=== PATIENT | female | born 1930 | race Caucasian/White ===

== ENCOUNTER 2016-05-22 08:42 | Emergency (ER) | payer MEDICARE, MEDICAID ==
--- NOTE | 2016-05-22 09:45 | ED ---
Head Injury - HPI Summary HPI Summary: 85F presents with fall out of bed this morning. She denies any chest pain or SOB. She does not recall the fall well. According to the [facility] records this is her third this week. The previous fall is when she sustain an injury to her left eye. She states that nothing is bother her at the moment. When press on areas she notes pain to her right foot and hip and right shoulder. According to the nurse home records she was found on her right side. She has dementia and states she does not remember the exact circumstances of the fall but states that she thinks she rolled out of bed According to her records she is not on any blood thinners. She has blood noted to the right side of her scalp. Patient gets around by wheelchair in [facility]. - History Of Current Complaint Chief Complaint: EDGeneral Stated Complaint: FALL Time Seen by Provider: 05/22/16 09:26 Pain Intensity: 8 - Allergies/Home Medications Allergies/Adverse Reactions: Allergies Allergy/AdvReac Type Severity Reaction Status Date / Time Penicillins [PCN] Allergy Unknown Unknown Verified 07/06/13 16:50 Reaction Details Levofloxacin [From Levaquin] Allergy Unknown Verified 01/31/16 05:46 Reaction Details Prochlorperazine Allergy Unknown Verified 01/31/16 05:46 [From Compazine] Reaction Details Promethazine [From Phenergan] Allergy DISORIENTAT Verified 07/06/13 16:50 ION PMH/Surg Hx/FS Hx/Imm Hx Endocrine/Hematology History: Reports: Hx Anemia - IRON DEFICIENCY Denies: Hx Anticoagulant Therapy Cardiovascular History: Reports: Hx Coronary Artery Disease - STENT IN PLACE- APPROXIMATELY 13 YEARS AGO, Hx Hypertension - ON MEDICATION Respiratory History: Reports: Hx Pneumonia - current DX Comment Only: Hx Asthma - PNEUMONIA GI History: Reports: Hx Gastroesophageal Reflux Disease - ON MEDICATION, Other GI Disorders - HISTORY OF GASTRITIS Musculoskeletal History: Reports: Hx Arthritis - BACK, NECK HANDS, Hx Back Problems - altman surgery x4, Other Musculoskeletal History - BILATERAL FOOT DROP PER DR. ROSE H&P Sensory History: Reports: Hx Contacts or Glasses - GLASSES Denies: Hx Hearing Aid Opthamlomology History: Reports: Hx Contacts or Glasses - GLASSES Psychiatric History: Reports: Hx Depression - ON MEDICATION FOR - Surgical History Surgery Procedure, Year, and Place: APPENDECTOMY-TC. 3- [id number]. NECK SURGERY- DISCECTOMY. FUSION-WITH REVISIONS [facility]. FOOT SURGERY. CARDIAC STENT. SURGERY FOR DIVERTICULITIS Hx Anesthesia Reactions: Yes - ONE OF C-SECTIONS- 1954- LUNGS FILLED WITH FLUID - Immunization History Date of Tetanus Vaccine: unk Date of Influenza Vaccine: 01/09/16 Infectious Disease History: No Infectious Disease History: Reports: Hx Hepatitis - A CHILD Denies: Traveled Outside the [place] in Last 30 Days - Family History Known Family History: Positive: Hypertension - Social History Alcohol Use: None Substance Use Type: Reports: None Smoking Status (MU): Never Smoked Tobacco Type: Cigarettes Amount Used/How Often: 1/2 pk/day Review of Systems Negative: Fever Negative: Chest Pain Negative: Shortness Of Breath Negative: Abdominal Pain Positive: Myalgia - right hip and foot Positive: Other - laceration to right side of scalp Negative: Headache All Other Systems Reviewed And Are Negative: Yes Physical Exam Triage Information Reviewed: Yes Vital Signs On Initial Exam: Initial Vitals BP 120/51 05/22/16 08:46 Vital Signs Reviewed: Yes Completion Of Physical Exam Limited Due To: Dementia Appearance: Positive: Well-Appearing Skin: Positive: Warm, Dry, Other - no suturable area noted on right side of scalp, small abrasion 2cm noted that does not separate Head/Face: Positive: Other - left raccoon eye present, no step off noted, no patricio sign Eyes: Positive: Normal, EOMI, JAMESON, Conjunctiva Clear ENT: Positive: Normal ENT inspection, Pharynx normal, TMs normal Neck: Positive: Nontender Respiratory/Lung Sounds: Positive: Clear to Auscultation, Breath Sounds Present Cardiovascular: Positive: Normal, RRR Abdomen Description: Positive: Nontender, Soft Bowel Sounds: Positive: Present Musculoskeletal: Positive: Other - tender to right foot, shoulder, and hip with ecchymosis noted on right shoulder and hip Neurological: Positive: CN Intact II-III - [place] Coma Scale Best Eye Response: 4 - Spontaneous Best Motor Response: 6 - Obeys Commands Best Verbal Response: 5 - Oriented Coma Scale Total: 15 Diagnostics - Vital Signs Vital Signs Temp Pulse Resp BP Pulse Ox 05/22/16 09:03 96.6 F 68 18 120/51 100 05/22/16 09:00 64 99 05/22/16 08:54 96.6 F 68 18 120/51 100 05/22/16 08:48 69 93 05/22/16 08:46 120/51 - Laboratory Lab Statement: Any lab studies that have been ordered have been reviewed, and results considered in the medical decision making process. - Radiology shoulder Xray Interpretation: No Acute Changes - IMPRESSION: Old ununited fracture of the right clavicle. Superiorly subluxed humeral head likely due to chronic rotator cuff tear. Radiology Interpretation Completed By: Radiologist hip Xray Interpretation: No Acute Changes - IMPRESSION: No fracture of the pelvis is noted. Degenerative changes of the right hip are noted. The right hip is limited in evaluation due to body habitus. Radiology Interpretation Completed By: Radiologist foot Xray Interpretation: No Acute Changes - IMPRESSION: LIMITED VIEWS SHOW NO DEFINITIVE FRACTURE. SUGGEST FOLLOW-UP INDICATED Radiology Interpretation Completed By: Radiologist - CT head CT Interpretation: Positive (See Comments) - IMPRESSION: No intracranial mass or hemorrhage is noted. Soft tissue swelling over the left orbit with skin thickening at the medial aspect of the orbit just adjacent to the nasal bridge. There may be some underlying bony destruction present. Right parietal scalp hematomas are noted. CT Interpretation Completed By: Radiologist maxillary CT Interpretation: Positive (See Comments) - IMPRESSION: 1. NO FACIAL FRACTURE. 2. FOCAL SOFT TISSUE THICKENING ALONG THE MEDIAL CANTHUS OF THE LEFT EYE. RECOMMEND CORRELATION WITH DIRECT VISUALIZATION. 3. SINUS MUCOSAL INFLAMMATORY DISEASE. CT Interpretation Completed By: Radiologist Head Injury Course/Dx Course Of Treatment: 85F presents with fall out of bed. has dementia so does not remember fall. denies any chest pain or SOB currently. She has raccoon eye that was from a previous fall this week. She feel on her right side today. She has blood present on right side of scalp. She admits to right foot, hip, and shoulder pain. xray normal. foot was limited xray. CT brain showed hematoma and possible lesion of left eye near medial canthus on exam there is a bum present there. discussed head CT with dr morrell and dr nevarez and lesion does not appear to osteomyelitis could be potential lytic lesion so will need follow up to see if resolves or not. urine was cloudy and positive for UTI. will treat with bactrim due to allergies. cleaned scalp and no suturable lesion present. instructed patient to follow up with primary about lesion near eye and for repeat xray of foot as needed. gave instructions for patient [facility] to [facility]. - Diagnoses Differential Diagnosis/HQI/PQRI: Contusion, Intracranial Bleed, Orbital Fracture , Other - UTI Provider Diagnoses: Urinary tract infection, lesion of medial canthus of left eye, Head injury, Right hip pain, Right shoulder pain, Right foot pain Discharge - Discharge Plan Condition: Stable Disposition: CUSTODIAL FACILITY Prescriptions: Sulfamethox/Trimethoprim DS* [Bactrim DS 800/160 TAB*] 1 tab PO BID #13 tab Patient Education Materials: Urinary Tract Infection in Women (ED), Scalp Contusion in Adults (ED) Referrals: Jesus Dasilva MD [Primary Care Provider] - Additional Instructions: Patient has a UTI: give first dose of bactrim in ED, will need to take Bactrim DS bid for 7 days Patient potentially has lesion of medial canthus of left eye may be due to fall or may represent potential lytic lesion, will need follow up with primary to follow this potential lesion Foot xray were limited due to patient so may need follow up in future for xray to ensure nothing is fractured Can take tyenol for pain every 6 hours as needed Return to ED if develop any new or worsening symptoms
[2016-05-22 10:13] LABS: Urine Bacteria Absent (Absent); Urine Bilirubin Negative (Negative); Urine Glucose Negative (Negative); Urine Nitrite Negative (Negative)
[2016-05-22] MEDS ORDERED: Sulfamethox/Trimethoprim DS 800/160* TAB PO ONE (10:31)
--- NOTE | 2016-05-22 10:53 | RAD ---
HISTORY: Left facial trauma COMPARISONS: None TECHNIQUE: Multiple contiguous axial CT scans were obtained of the face without intravenous contrast, with coronal and sagittal multiplanar reformations. FINDINGS: BONES: There is no displaced fracture or dislocation. The orbital rim is intact. The zygomatic arch is intact. The pterygoid plates are intact. Degenerative changes are noted of the spine. 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 The optic nerves are symmetric. The extraocular musculature is normal. There is no post septal or intraconal inflammatory change. There is no retrobulbar hematoma. There is focal soft tissue thickening along the medial canthus of the left eye PARANASAL SINUSES: The nasal septum is deviated to the left. There is polypoid mucosal thickening versus mucus retention cyst of the left maxillary sinus. BRAIN AND SOFT TISSUE: There is soft tissue swelling along the left frontal scalp OTHER: None. IMPRESSION: 1. NO FACIAL FRACTURE. 2. FOCAL SOFT TISSUE THICKENING ALONG THE MEDIAL CANTHUS OF THE LEFT EYE. RECOMMEND CORRELATION WITH DIRECT VISUALIZATION. 3. SINUS MUCOSAL INFLAMMATORY DISEASE.
--- NOTE | 2016-05-22 10:54 | RAD ---
Indication: Fall, head injury. CT of the brain was performed without IV contrast. Ventricular structures are midline. No midline shift is noted. The extra-axial spaces are unremarkable. There is no evidence of intracranial mass or hemorrhage. Mastoid air cells and paranasal sinuses are unremarkable. There is a right parietal scalp hematoma present. There is also a right parietal scalp hematoma noted. In the right medial orbit there appears to be a skin lesion which may be causing bony destruction. IMPRESSION: No intracranial mass or hemorrhage is noted. Soft tissue swelling over the left orbit with skin thickening at the medial aspect of the orbit just adjacent to the nasal bridge. There may be some underlying bony destruction present. Right parietal scalp hematomas are noted.
--- NOTE | 2016-05-22 11:17 | RAD ---
Indication: Right shoulder pain. 3 views of the right shoulder demonstrates superiorly subluxed humeral head likely due to chronic rotator cuff tear. There appears to be old fracture of the clavicle. No recent fracture is noted. IMPRESSION: Old ununited fracture of the right clavicle. Superiorly subluxed humeral head likely due to chronic rotator cuff tear.
--- NOTE | 2016-05-22 11:19 | RAD ---
Indication: Right hip pain. 2 views of the right hip are reviewed. AP view the pelvis is reviewed. The lateral view is extremely limited due to body habitus. Degenerative changes of the right hip are noted. Pelvic ring is intact. IMPRESSION: No fracture of the pelvis is noted. Degenerative changes of the right hip are noted. The right hip is limited in evaluation due to body habitus.
--- NOTE | 2016-05-22 11:20 | RAD ---
INDICATION: Fall. Foot pain COMPARISON: None TECHNIQUE: Portable lateral and crosstable AP images were obtained. FINDINGS: This is a limited examination due to positioning. There is marked osteopenia. There is no definitive fracture but the toes are not well evaluated. There is moderate osteophyte change but the midfoot. There is a plantar calcaneal spur. IMPRESSION: LIMITED VIEWS SHOW NO DEFINITIVE FRACTURE. SUGGEST FOLLOW-UP INDICATED
[2016-05-22 12:30] VITALS: BP 107/45
--- NOTE | 2016-05-24 11:04 | PN ---
Progress Note - Progress Note Note: Proteus mirabilis grew from urine culture. gram negative bacteria likely susceptible to bactrim. Will await sensitivities.
== END 2016-05-22 12:30 ==
LOC: ED 08:42
DX: N39.0 Urinary tract infection, site not specified (principal); M25.511 Pain in right shoulder; S09.90XA Unspecified injury of head, initial encounter; S01.01XA Laceration without foreign body of scalp, initial encounter; R07.9 Chest pain, unspecified; R06.02 Shortness of breath; W06.XXXA Fall from bed, initial encounter; Y93.9 Activity, unspecified; Y92.9 Unspecified place or not applicable; Z88.0 Allergy status to penicillin
CPT/HCPCS: 70450; 70486; 81003; 81015; 87077; 87086; 87186; 99283; A9270-GY

== ENCOUNTER 2016-09-22 13:31 | Emergency (ER) | payer MEDICARE, MEDICAID ==
[2016-09-22] MEDS ORDERED: NS 0.9% 1000 ML* 1,000 ML IV ONE (14:51)
[2016-09-22] MEDS ORDERED: Ondansetron INJ* 2 MG/ML VIAL IV ONE (14:52)
[2016-09-22] MEDS ORDERED: HYDROcodone/ACETAMIN 5-325 MG* 1 TAB PO ONE ×2 (14:52→18:46)
[2016-09-22 15:23] LABS: Hematocrit 39 % (35-47); Hemoglobin 12.5 g/dl (12.0-16.0); Mean Corpuscular HGB Conc 33 g/dl (31-36); Mean Corpuscular Hemoglobin 29 pg (27-31); Mean Corpuscular Volume 90 fL (80-97); Mean Platelet Volume 8 um3 (7.4-10.4); Red Cell Distribution Width 16 % (10.5-15); White Blood Count 15.4 10^3/ul (3.5-10.8)
[2016-09-22 15:24] LABS: Add Diff/Slide Review? Slide Review Added; Comments Flag Yes
[2016-09-22 15:40] LABS: Albumin 4.1 g/dL (3.2-5.2); BUN/Creatinine Ratio 18.5 (8-20); C Reactive Protein 3.21 mg/L (< 5.00); Calcium 9.7 mg/dL (8.6-10.3); EGFR African American 74.4 (>60); EGFR Non-African American 57.9 (>60); Magnesium 2.2 mg/dL (1.9-2.7); Total Bilirubin 0.5 mg/dL (0.2-1.0); Total Protein 8.1 g/dL (6.4-8.9)
[2016-09-22 17:06] LABS: Urine Bilirubin Negative (Negative); Urine Glucose Negative (Negative); Urine Nitrite Negative (Negative)
--- NOTE | 2016-09-22 18:57 | ED ---
Sailaja Roy Auryana, scribed for Marcos Lugo MD on 09/22/16 at 1456 . Abdominal Pain/Female - HPI Summary HPI Summary: 86 year old female presents with nausea and vomiting starting this morning. Patient reports that she has decreased appetite, diffuse myalgia, back pain, and SOB but denies any abdominal pain, diarrhea, and constipation. PMHx is significant for perforated diverticulitis. - History of Current Complaint Chief Complaint: EDAbdPain Stated Complaint: N,V, FEVER Time Seen by Provider: 09/22/16 14:47 Hx Obtained From: Patient Hx Last Menstrual Period: N/A ?: No Onset/Duration: Gradual Onset Timing: Constant Severity Initially: Moderate Severity Currently: Moderate Pain Intensity: 7 Pain Scale Used: 0-10 Numeric Location: Diffuse - denies any abdominal pain now Associated Signs and Symptoms: Positive: Back Pain, Decreased Appetite, Nausea, Vomiting. Negative: Fever, Constipation Allergies/Adverse Reactions: Allergies Allergy/AdvReac Type Severity Reaction Status Date / Time Penicillins [PCN] Allergy Unknown Unknown Verified 09/22/16 14:00 Reaction Details Levofloxacin [From Levaquin] Allergy Unknown Verified 09/22/16 14:00 Reaction Details Prochlorperazine Allergy Unknown Verified 09/22/16 14:00 [From Compazine] Reaction Details Promethazine [From Phenergan] Allergy DISORIENTAT Verified 09/22/16 14:00 ION Home Medications: Home Medications ALPRAZolam TAB* [Xanax TAB*] 0.25 mg PO BID PRN MDD 0.50 mg 09/22/16 [History Confirmed 09/22/16] Acetaminophen SUPP* [Tylenol Supp*] 650 mg AL Q8HR PRN 09/22/16 [History Confirmed 09/22/16] Acetaminophen TAB* [Tylenol TAB*] 650 mg PO Q8HR PRN 09/22/16 [History Confirmed 09/22/16] Diaper Rash Products [A+D Diaper Rash] 1 cre TOPICAL DAILY 09/22/16 [History Confirmed 09/22/16] Mirtazapine TAB* [Remeron TAB*] 7.5 mg PO BEDTIME 09/22/16 [History Confirmed ] Morphine Sulfate Beads [Morphine Sulfate ER] 60 mg PO BID PRN 09/22/16 [History Confirmed 09/22/16] Nystatin TOP POWDER* 1 applic TOPICAL BID PRN 09/22/16 [History Confirmed ] Ranitidine HCl (Nf) [Zantac] 75 mg PO BID 09/22/16 [History Confirmed 09/22/16] guaiFENesin LIQ* [Robitussin*] 15 ml PO Q6HR PRN 09/22/16 [History Confirmed ] PMH/Surg Hx/FS Hx/Imm Hx Endocrine/Hematology History: Reports: Hx Anemia - IRON DEFICIENCY Denies: Hx Anticoagulant Therapy Cardiovascular History: Reports: Hx Coronary Artery Disease - STENT IN PLACE- APPROXIMATELY 13 YEARS AGO, Hx Hypertension - ON MEDICATION Respiratory History: Reports: Hx Pneumonia - current DX Comment Only: Hx Asthma - PNEUMONIA GI History: Reports: Hx Gastroesophageal Reflux Disease - ON MEDICATION, Other GI Disorders - HISTORY OF GASTRITIS Musculoskeletal History: Reports: Hx Arthritis - BACK, NECK HANDS, Hx Back Problems - altman surgery x4, Other Musculoskeletal History - BILATERAL FOOT DROP PER DR. ROSE H&P Sensory History: Reports: Hx Contacts or Glasses - GLASSES Denies: Hx Hearing Aid Opthamlomology History: Reports: Hx Contacts or Glasses - GLASSES Psychiatric History: Reports: Hx Depression - ON MEDICATION FOR - Surgical History Surgery Procedure, Year, and Place: APPENDECTOMY-TCH. 3- [id number]. NECK SURGERY- DISCECTOMY. [place] [facility] [place]. CARDIAC STENT. SURGERY FOR DIVERTICULITIS Hx Anesthesia Reactions: Yes - ONE OF C-SECTIONS- 1954- LUNGS FILLED WITH FLUID - Immunization History Date of Tetanus Vaccine: unk Date of Influenza Vaccine: 01/09/16 Infectious Disease History: No Infectious Disease History: Reports: Hx Hepatitis - A CHILD Denies: Traveled Outside the [place] in Last 30 Days - Family History Known Family History: Positive: Hypertension - Social History Alcohol Use: None Substance Use Type: Reports: None Smoking Status (MU): Never Smoked Tobacco Type: Cigarettes Amount Used/How Often: 1/2 pk/day Review of Systems Constitutional: Negative Negative: Fever Eyes: Negative ENT: Negative Cardiovascular: Negative Positive: Shortness Of Breath Positive: Vomiting, Nausea, Other - decreased appetite . Negative: Abdominal Pain Genitourinary: Negative Positive: no symptoms reported Positive: Myalgia - diffuse, Other - back pain Skin: Negative Neurological: Negative Psychological: Normal All Other Systems Reviewed And Are Negative: Yes Physical Exam - Summary Physical Exam Summary: VITAL SIGNS: Reviewed. GENERAL: Patient is a obese elderly female who is lying uncomfortable in the stretcher. Patient is in pain distress secondary to back pain. Patient is not in any acute respiratory distress. HEAD AND FACE: Normocephalic and atraumatic. EYES: PERRLA, EOMI x 2, No injected conjunctiva. EARS: Hearing grossly intact. Ear canals and tympanic membranes are WNL. MOUTH: Oropharynx within normal limits. NECK: Supple, trachea is midline, no adenopathy, no JVD. CHEST: Symmetric, no tenderness at palpation LUNGS: Clear to auscultation bilaterally. No wheezing or crackles. CVS: RRR, S1 and S2 present, no murmurs or gallops appreciated. ABDOMEN: Soft, non-tender. No signs of distention. Positive bowel sounds. No rebound no guarding, and no masses palpated. No abdominal bruit or pulsations. EXTREMITIES: FROM in all major joints, no edema, no cyanosis or clubbing. Vertebral angle tenderness in the lumbar spine. NEURO: Alert and oriented x 3. No acute neurological deficits. Speech is normal. SKIN: Dry and warm Triage Information Reviewed: Yes Vital Signs On Initial Exam: Initial Vitals Temp Pulse Resp BP Pulse Ox 98.4 F 61 18 150/81 96 09/22/16 13:54 09/22/16 13:54 09/22/16 13:54 09/22/16 13:54 09/22/16 13:54 Vital Signs Reviewed: Yes Diagnostics - Vital Signs Vital Signs Temp Pulse Resp BP Pulse Ox 09/22/16 13:58 98.4 F 61 18 167/79 98 09/22/16 13:54 98.4 F 61 18 150/81 96 - Laboratory Lab Results: Lab Results 09/22/16 09/22/16 09/22/16 Range/Units 15:10 15:10 15:10 WBC 15.4 H (3.5-10.8) 10^3/ul RBC 4.30 (4.0-5.4) 10^6/ul Hgb 12.5 (12.0-16.0) g/dl Hct 39 (35-47) % MCV 90 (80-97) fL MCH 29 (27-31) pg MCHC 33 (31-36) g/dl RDW 16 H (10.5-15) % Plt Count 229 (150-450) 10^3/ul MPV 8 (7.4-10.4) um3 Neut % (Auto) 80.0 (38-83) % Lymph % (Auto) 10.9 L (25-47) % Cassia % (Auto) 7.7 (1-9) % Eos % (Auto) 0.2 (0-6) % Baso % (Auto) 1.2 (0-2) % Absolute Neuts (auto) 12.3 H (1.5-7.7) 10^3/ul Absolute Lymphs (auto) 1.7 (1.0-4.8) 10^3/ul Absolute Monos (auto) 1.2 H (0-0.8) 10^3/ul Absolute Eos (auto) 0 (0-0.6) 10^3/ul Absolute Basos (auto) 0.2 (0-0.2) 10^3/ul Absolute Nucleated RBC 0.01 10^3/ul Nucleated RBC % 0 Sodium 133 (133-145) mmol/L Potassium 4.0 (3.5-5.0) mmol/L Chloride 97 L (101-111) mmol/L Carbon Dioxide 31 (22-32) mmol/L Anion Gap 5 (2-11) mmol/L BUN 17 (6-24) mg/dL Creatinine 0.92 (0.51-0.95) mg/dL Est GFR ( Amer) 74.4 (>60) Est GFR (Non-Af Amer) 57.9 (>60) BUN/Creatinine Ratio 18.5 (8-20) Glucose 104 H (70-100) mg/dL Lactic Acid 0.7 (0.5-2.0) mmol/L Calcium 9.7 (8.6-10.3) mg/dL Magnesium 2.2 (1.9-2.7) mg/dL Total Bilirubin 0.50 (0.2-1.0) mg/dL AST 21 (13-39) U/L ALT 10 (7-52) U/L Alkaline Phosphatase 74 (34-104) U/L C-Reactive Protein 3.21 (< 5.00) mg/L B-Natriuretic Peptide ( - 100) pg/mL Total Protein 8.1 (6.4-8.9) g/dL Albumin 4.1 (3.2-5.2) g/dL Globulin 4.0 (2-4) g/dL Albumin/Globulin Ratio 1.0 (1-3) Amylase 40 (29-103) U/L Lipase 46 (11.0-82.0) U/L Urine Color Urine Appearance Urine pH (5-9) Ur Specific [place] (1.010-1.030) Urine Protein (Negative) Urine Ketones (Negative) Urine Blood (Negative) Urine Nitrate (Negative) Urine Bilirubin (Negative) Urine Urobilinogen (Negative) Ur Leukocyte Esterase (Negative) Urine Glucose (Negative) 09/22/16 09/22/16 Range/Units 15:10 16:54 WBC (3.5-10.8) 10^3/ul RBC (4.0-5.4) 10^6/ul Hgb (12.0-16.0) g/dl Hct (35-47) % MCV (80-97) fL MCH (27-31) pg MCHC (31-36) g/dl RDW (10.5-15) % Plt Count (150-450) 10^3/ul MPV (7.4-10.4) um3 Neut % (Auto) (38-83) % Lymph % (Auto) (25-47) % Cassia % (Auto) (1-9) % Eos % (Auto) (0-6) % Baso % (Auto) (0-2) % Absolute Neuts (auto) (1.5-7.7) 10^3/ul Absolute Lymphs (auto) (1.0-4.8) 10^3/ul Absolute Monos (auto) (0-0.8) 10^3/ul Absolute Eos (auto) (0-0.6) 10^3/ul Absolute Basos (auto) (0-0.2) 10^3/ul Absolute Nucleated RBC 10^3/ul Nucleated RBC % Sodium (133-145) mmol/L Potassium (3.5-5.0) mmol/L Chloride (101-111) mmol/L Carbon Dioxide (22-32) mmol/L Anion Gap (2-11) mmol/L BUN (6-24) mg/dL Creatinine (0.51-0.95) mg/dL Est GFR ( Amer) (>60) Est GFR (Non-Af Amer) (>60) BUN/Creatinine Ratio (8-20) Glucose (70-100) mg/dL Lactic Acid (0.5-2.0) mmol/L Calcium (8.6-10.3) mg/dL Magnesium (1.9-2.7) mg/dL Total Bilirubin (0.2-1.0) mg/dL AST (13-39) U/L ALT (7-52) U/L Alkaline Phosphatase (34-104) U/L C-Reactive Protein (< 5.00) mg/L B-Natriuretic Peptide 330 H ( - 100) pg/mL Total Protein (6.4-8.9) g/dL Albumin (3.2-5.2) g/dL Globulin (2-4) g/dL Albumin/Globulin Ratio (1-3) Amylase (29-103) U/L Lipase (11.0-82.0) U/L Urine Color Straw Urine Appearance Clear Urine pH 7.0 (5-9) Ur Specific [place] 1.008 L (1.010-1.030) Urine Protein Negative (Negative) Urine Ketones Negative (Negative) Urine Blood Negative (Negative) Urine Nitrate Negative (Negative) Urine Bilirubin Negative (Negative) Urine Urobilinogen Negative (Negative) Ur Leukocyte Esterase Negative (Negative) Urine Glucose Negative (Negative) Result Diagrams: 09/22/16 15:10 09/22/16 15:10 Lab Statement: Any lab studies that have been ordered have been reviewed, and results considered in the medical decision making process. Re-Evaluation - Re-Evaluation First Eval Re-Evaluation Time: 18:27 Abdominal Pain Fem Course/Dx - Course Course Of Treatment: 86 year old female presents with nausea and vomiting starting this morning. Patient reports that she has decreased appetite, diffuse myalgia, back pain, and SOB but denies any abdominal pain, diarrhea, and constipation. PMHx is significant for perforated diverticulitis. In the ED course an IV access was obtained. Patient was placed in a diagnostic cardiac sonographer. Patient was started with IV fluids. She was given Zofran for nausea and vomiting and [place] for pain. She reports that after one episode of nausea and epigastric pain this morning the symptoms did not return. Her only complaint is the chronic back pain. Labs within normal limits except for WBCs of 15 and BNP of 330. UA negative for UTI. SHe refused and abdominal and pelvic CT since she has no pain. I offered an abdominal X ray and she also refused. She is passing gas and she had a BM this AM. EKG shows a NSR w/o ST elevations. After pain medication ofr her back she reports feeling better and she [facility] I discussed all the findings and test results with the patient. Patient was instructed to return to the emergency room immediately if any of the symptoms return or worsens. They were explained the possibility of an early abdominal pathology which was not detected at this time despite the physical exam and testing. They understand and agree. Abdominal exam before discharge: Soft, NT. No signs of distention. BS present. No rebound no guarding, and no masses palpated. Patient is alert and oriented and hemodynamically stable. Patient is to follow up with primary care physician in the next 2 to 3 days. Patient agree and understands. - Diagnoses Differential Diagnosis: Positive: Constipation, Other - Gatritis, gatroenteritis , cayden pain Provider Diagnoses: Nausea & vomiting, epigastric pain - 1 episode Discharge - Discharge Plan Condition: Stable Disposition: HOME Patient Education Materials: Acute Nausea and Vomiting (ED), Epigastric Pain ( ED) Referrals: Jesus Dasilva MD [Primary Care Provider] - 2 Days The documentation as recorded by the Sailaja mojica Auryana accurately reflects the service I personally performed and the decisions made by me, Marcos Lugo MD.
[2016-09-22] MEDS ORDERED: D5W IVPB SCH (19:00)
[2016-09-22] MEDS ORDERED: ACETYLCYSTEINE IVPB SCH (19:00)
[2016-09-22 19:27] VITALS: BP 138/62
== END 2016-09-22 19:15 | disposition home or self-care (01) ==
LOC: ED 13:31
DX: M54.9 Dorsalgia, unspecified (principal); R06.02 Shortness of breath; R11.2 Nausea with vomiting, unspecified
CPT/HCPCS: 36415; 80053; 81003; 82150; 83605; 83690; 83735; 83880; 85025; 86140; 93005; 96374; 99284; J2405

== ENCOUNTER → 2017-02-02 10:40 | Emergency (ER) | payer MEDICARE, MEDICAID ==
[~2017-02-02 10:40] MED LIST: HYDROcodone/ACETAMIN 5-325 MG* 1 TAB PO ONE
--- NOTE | 2017-02-02 11:47 | RAD ---
INDICATION: Left hand injury. TECHNIQUE: 4 views of the left hand were obtained. FINDINGS: The bones are osteopenic. There is soft tissue swelling adjacent to the first metacarpal. There is a transverse fracture of the proximal diaphysis of the first metacarpal. The distal fragment is displaced one half shaft diameter lateral and posterior and demonstrates medial and anterior angulation relative to the proximal fragment. There is an old healed fracture of the distal radial metaphysis and an old ununited fracture of the ulnar styloid process. IMPRESSION: TRANSVERSE, DISPLACED, ANGULATED FRACTURE OF THE FIRST METACARPAL.
[2017-02-02 12:51] VITALS: BP 149/63
--- NOTE | 2017-02-02 12:54 | ED ---
Upper Extremity Pain - HPI Summary HPI Summary: Patient presents to the ED with CC of left humb injury after falling from her wheelchair 2-3 days ago. She does not recall. She had an appt with her PCP who sent her here. She had an xray which showed a fracture. She denies numbness, tingling, but notes to color changes. Pulses are good. Cap refill good. No previous injury to the thumb. She is unable to flex and extend at the MCP or PIP joint. Denies other injuries during the fall. Patient lives at [facility]. Oxycodone with some relief of pain. - History of Current Complaint Chief Complaint: EDExtremityUpper Stated Complaint: CAST ON LEFT WRIST Time Seen by Provider: 02/02/17 10:59 Hx Obtained From: Patient Hx Last Menstrual Period: N/A Mechanism Of Injury: Direct Blow Onset/Duration: Started Days Ago Timing: Constant Severity Initially: Mild Severity Currently: Mild Pain Location: Hand Character: Aching Aggravating Factor(s): Lifting, Extension Alleviating Factor(s): Rest, Ice Associated Signs & Symptoms: Positive: Swelling, Redness, Bruising. Negative: Numbness/Tingling - Risk Factors Non-Orthopedic Risk Factor: Negative DVT Risk Factors: Negative Septic Arthritis Risk Factor: Negative Compartment Syndrome Risk Factors: Pain - Allergies/Home Medications Allergies/Adverse Reactions: Allergies Allergy/AdvReac Type Severity Reaction Status Date / Time Penicillins [PCN] Allergy Unknown Unknown Verified 09/22/16 14:00 Reaction Details Levofloxacin [From Levaquin] Allergy Unknown Verified 09/22/16 14:00 Reaction Details Prochlorperazine Allergy Unknown Verified 09/22/16 14:00 [From Compazine] Reaction Details Promethazine [From Phenergan] Allergy DISORIENTAT Verified 09/22/16 14:00 ION Home Medications: Home Medications Lidocaine HCl [Lidocaine] 3 % TOPICAL TID PRN 02/02/17 [History Confirmed ] Minerin Cream* [Minerin*] 1 applic TOPICAL BID 02/02/17 [History Confirmed 02/02] Morphine TAB Extended Rel(*) [Ms Contin(*)] 60 mg PO BID 02/02/17 [History Confirmed 02/02/17] Ranitidine TAB (NF) [Zantac TAB (NF)] 150 mg PO BEDTIME 02/02/17 [History Confirmed 02/02/17] Ropinirole TAB* [Requip TAB*] 0.25 mg PO DAILY 02/02/17 [History Confirmed 02/02] PMH/Surg Hx/FS Hx/Imm Hx Previously Healthy: No Endocrine/Hematology History: Reports: Hx Anemia - IRON DEFICIENCY Denies: Hx Anticoagulant Therapy Cardiovascular History: Reports: Hx Coronary Artery Disease - STENT IN PLACE- APPROXIMATELY 13 YEARS AGO, Hx Hypertension - ON MEDICATION Respiratory History: Reports: Hx Pneumonia - current DX Comment Only: Hx Asthma - PNEUMONIA GI History: Reports: Hx Gastroesophageal Reflux Disease - ON MEDICATION, Other GI Disorders - HISTORY OF GASTRITIS Musculoskeletal History: Reports: Hx Arthritis - BACK, NECK HANDS, Hx Back Problems - altman surgery x4, Other Musculoskeletal History - BILATERAL FOOT DROP PER DR. ROSE H&P Sensory History: Reports: Hx Contacts or Glasses - GLASSES Denies: Hx Hearing Aid Opthamlomology History: Reports: Hx Contacts or Glasses - GLASSES Psychiatric History: Reports: Hx Depression - ON MEDICATION FOR - Surgical History Surgery Procedure, Year, and Place: APPENDECTOMY-TCH. 3- [id number]. NECK SURGERY- DISCECTOMY. FUSION-WITH REVISIONS [facility]. FOOT SURGERY. CARDIAC STENT. SURGERY FOR DIVERTICULITIS Hx Anesthesia Reactions: Yes - ONE OF C-SECTIONS- 1954- LUNGS FILLED WITH FLUID - Immunization History Date of Tetanus Vaccine: unk Date of Influenza Vaccine: 12/2016 Immunizations Up to Date: Yes Infectious Disease History: Unable to Obtain/Confirm Infectious Disease History: Reports: Hx Hepatitis - A CHILD Denies: Traveled Outside the [place] in Last 30 Days - Family History Known Family History: Positive: Hypertension - Social History Occupation: Unemployed [facility]: [facility] Alcohol Use: None Hx Substance Use: No Substance Use Type: Reports: None Hx Tobacco Use: No Smoking Status (MU): Never Smoked Tobacco Type: Cigarettes Amount Used/How Often: 1/2 pk/day Review of Systems Constitutional: Negative Negative: Fever, Chills, Fatigue Eyes: Negative Cardiovascular: Negative Gastrointestinal: Negative Genitourinary: Negative Positive: no symptoms reported, see HPI Positive: Arthralgia, Myalgia Positive: Bruising Neurological: Negative All Other Systems Reviewed And Are Negative: Yes Physical Exam Triage Information Reviewed: Yes Vital Signs On Initial Exam: Initial Vitals Temp Pulse Resp BP Pulse Ox 97.2 F 68 16 171/98 98 02/02/17 10:42 02/02/17 10:42 02/02/17 10:42 02/02/17 10:42 02/02/17 10:42 Vital Signs Reviewed: Yes Appearance: Positive: Well-Appearing, No Pain Distress, Well-Nourished Skin: Positive: Skin Color Reflects Adequate Perfusion Head/Face: Positive: Normal Head/Face Inspection Eyes: Positive: EOMI, JAMESON, Conjunctiva Clear Respiratory/Lung Sounds: Positive: Breath Sounds Present Cardiovascular: Positive: Pulses are Symmetrical in both Upper and Lower Extremities Musculoskeletal: Positive: Pain @ - left thumb injury - bruising and erythema to the area Neurological: Positive: Speech Normal Psychiatric: Positive: Normal - Joanna Coma Scale Coma Scale Total: 15 Diagnostics - Vital Signs Vital Signs Temp Pulse Resp BP Pulse Ox 02/02/17 10:42 97.2 F 68 16 171/98 98 - Laboratory Lab Statement: Any lab studies that have been ordered have been reviewed, and results considered in the medical decision making process. Course/Dx - Course Course Of Treatment: Patient presents s/p 2 days with pain, erythema and ecchymosis to the MCP joint of the L thumb. There is an old healed fracture of the distal radial metaphysis and an old ununited. fracture of the ulnar styloid process. Dr. Harris called who suggests thumb spica and follow up this week to ortho. Thumb spica placed and tolerated well. Denies pain, numbness or tingling. VS stable on discharge. Pain medication at home. IMPRESSION: TRANSVERSE, DISPLACED, ANGULATED FRACTURE OF THE FIRST METACARPAL. - Diagnoses Differential Diagnosis/HQI/PQRI: Positive: Fracture (Open), Fracture (Closed) Provider Diagnoses: Thumb fracture Discharge - Discharge Plan Condition: Stable Disposition: HOME Patient Education Materials: Thumb Fracture (ED) Referrals: Jesus Dasilva MD [Primary Care Provider] - Flynn Harris MD [Medical Doctor] - Additional Instructions: Please follow up in 2-3 days with ortho. Call office today to make an appt I have given you a referral Continue with your at home pain medications as needed Keep splint applied Keep it dry while showering, etc.
== END | disposition home or self-care (01) ==
LOC: ED 10:40
DX: S62.502A Fracture of unspecified phalanx of left thumb, initial encounter for closed fracture (principal); W05.0XXA Fall from non-moving wheelchair, initial encounter; Y93.9 Activity, unspecified; Y92.9 Unspecified place or not applicable
CPT/HCPCS: 99282

== ENCOUNTER 2017-02-09 09:44 | Day surgery (SDC) | payer MEDICARE, MEDICAID ==
--- NOTE | 2017-02-07 16:44 | HP ---
PREOPERATIVE HISTORY AND PHYSICAL: DATE OF SURGERY/ADMISSION: 02/09/17 [facility] ATTENDING SURGEON: Suze Oliveros MD * (DICTATED BY WYATT YOUNGBLOOD) PROCEDURE: Left thumb metacarpal closed, possible open reduction and pinning. CHIEF COMPLAINT: Left hand/thumb pain after fall. HISTORY OF PRESENT ILLNESS: This is an 86-year-old female, who resides at [facility]. She fell out of her chair on 01/31/17, injuring her left thumb. She went to the hospital and had some x-rays, which showed a completely displaced fracture, midshaft of the first metacarpal. This is her non-dominant hand. She is on pain medications for other problems, which are controlling the pain from this injury. 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 She is typically on oxygen. After being evaluated and reviewed by Dr. Oliveros, she has consented to proceed with surgical intervention in the form of a left thumb metacarpal closed, possible open reduction and pinning. We will obtain medical clearance by Dr. Dasilva at [facility] prior to proceeding with surgery. PAST MEDICAL HISTORY: 1. GERD. 2. History of pneumonia, bronchitis. 3. History of congestive heart failure. 4. Hyperlipidemia. 5. Depression/anxiety. 6. Hypertension. 7. Restless legs syndrome. 8. Asthma. PAST SURGICAL HISTORY: 1. Tonsillectomy. 2. Appendectomy. 3. x3. 4. Cholecystectomy. 5. Intestinal resection. 6. Back surgery x4. MEDICATIONS: 1. Atenolol 50 mg daily. 2. Atorvastatin calcium 20 mg daily. 3. Diphenhydramine HCl 25 mg daily. 4. Ibuprofen 600 mg t.i.d. p.r.n. 5. Ipratropium bromide/albuterol sulfate 0.5/2.5 one vial in nebulizer q.4 hours p.r.n. 6. Loratadine 10 mg every other day. 7. Milk of magnesia q.3 days p.r.n. constipation. 8. Nortriptyline HCl 10 mg daily. 9. OxyContin 80 mg 1 tablet b.i.d. 10. Protonix 40 mg daily. 11. Requip 0.25 mg daily. 12. Senna 8.6 mg daily. 13. Trazodone HCl 100 mg daily. 14. Vitamin D3, 5000 units 1 tab once a month. 15. Zoloft 100 mg half tab twice a day. ALLERGIES: PENICILLIN, reaction unknown. SOCIAL HISTORY: The patient is in assisted living at [facility]. She is a former smoker, she quit approximately 40 years ago. She denies recreational drug use and does not drink alcohol. REVIEW OF SYSTEMS: General: Positive for weakness and fatigue. Negative for fevers, chills, or night sweats. No known anesthesia problems in the past. HEENT: Positive for runny nose. Negative for headache, lightheadedness or syncopal episodes. Integumentary: Negative for abrasions, lesions, or open wounds. Pulmonary: Positive for shortness of breath with exertion. Negative for chronic cough or COPD. GI: Negative for nausea, vomiting, diarrhea or constipation. Positive for GERD. : Negative for nocturia, urinary frequency or urgency. Positive for history of UTI. Musculoskeletal: Positive for current complaint and history of fractures. Neurologic: Positive for depression/anxiety and age-related dementia. Negative for paresthesias, numbness, history of seizure or stroke. Endocrine: Negative for diabetes and thyroid issues. Hematologic: Negative for easy bruising, anemia, excessive bleeding, or history of DVT. Infectious Disease: Negative for history of MRSA, hepatitis C, or HIV. PHYSICAL EXAMINATION GENERAL: Well-developed, well-nourished 86-year-old female, in no acute distress. She presents in a wheelchair. VITAL SIGNS: Height 5 feet 2 inches, weight 175 pounds. Pulse rate 80, blood pressure 121/78. HEENT: Normocephalic and atraumatic. Pupils were equal, round and reactive to light and accommodation. Extraocular movements are intact. Throat is clear. NECK: Supple. No palpable lymph nodes. PULMONARY: Lungs are clear to auscultation bilaterally. No wheezes, rales, or rhonchi. CARDIOVASCULAR: Regular rate and rhythm. S1 and S2. Soft mid systolic murmur detected on auscultation. ABDOMEN: Positive bowel sounds. Soft, nontender. MUSCULOSKELETAL: On exam of her left upper extremity, in the left thumb there is a marked amount of ecchymosis. She has an obvious midshaft first metacarpal fracture. She has active flexion and extension of the thumb IP joint, marked tenderness around the fracture site. NEUROLOGIC: Alert and oriented. Cranial nerves II through XII are intact. Sensation is intact to light touch. PERIPHERAL VASCULAR: 2+ radial and ulnar pulses. Negative Osmin test. SKIN: Intact. Neurovascular function intact. IMAGING STUDIES: X-rays AP, lateral, and oblique of the thumb show a completely displaced fracture of the midshaft first metacarpal. IMPRESSION: Left first metacarpal fracture. PLAN: The patient is scheduled to undergo a left thumb metacarpal closed, possible open reduction and pinning with Dr. Oliveros on 02/09/17. She will return to the office 10 to 14 days postop for followup and suture removal. She has pain medications as prescribed by the doctor at her facility, which she will plan on using for postoperative pain management. We will receive clearance from Dr. Dasilva at [facility] prior to proceeding with surgery. WYATT YOUNGBLOOD [id number]/[facility] #: [id number] EDUAR
[~2017-02-09 09:44] MED LIST changes: +Buffered Lidocaine 0.9% SYRIN* 5 ML/SYR SYRINGE INTRADERM ONE; -HYDROcodone/ACETAMIN 5-325 MG* 1 TAB PO ONE
[2017-02-09] MEDS ORDERED: Clindamycin 900 MG IVPREMIX(* 900 MG/50 ML SDV IV ONE (10:28)
[2017-02-09] MEDS ORDERED: Bupivacaine 0.5% SDV PF* 30 ML VIAL ONE (11:21)
[2017-02-09] MEDS ORDERED: Lidocaine 1% INJ* 10 MG/ML 30 ML SDV ONE (11:21)
[2017-02-09] MEDS ORDERED: fentaNYL* 50 MCG/ML 2 ML VIAL (100 MCG VIAL) ONE (11:42)
[2017-02-09] MEDS ORDERED: Propofol* 10 MG/ML 20 ML BTL IV PUSH ONE (11:44)
[2017-02-09] MEDS ORDERED: Lidocaine 2% PF * 5 ML VIAL ONE (11:44)
[2017-02-09] MEDS ORDERED: HYDROcodone/ACETAMIN 5-325 MG* 1 TAB ONE (12:38)
[2017-02-09 12:43] VITALS: BP 106/55
--- NOTE | 2017-02-10 02:04 | OP ---
DATE OF OPERATION: 02/09/17 [facility] DATE OF : 30 SURGEON: Suze Oliveros MD PERIODONTAL ASSISTANT: WYATT Gaona ANESTHESIA: Local MAC. PRE-OP DIAGNOSIS: Left thumb metacarpal fracture. POST-OP DIAGNOSIS: Left thumb metacarpal fracture. OPERATIVE PROCEDURE: Closed reduction percutaneous pinning, left thumb metacarpal. ESTIMATED BLOOD LOSS: Zero. INDICATION FOR PROCEDURE: Cara is an 86-year-old woman who broke her left thumb metacarpal when she fell out of her chair, it is very displaced. She presents for closed reduction and pinning. DESCRIPTION OF PROCEDURE: The patient was brought to the operative room and was given a sedation anesthetic and a local infiltration of total 20 cc of 1% plain lidocaine. Skin of her left hand and forearm was prepped and draped in the usual sterile fashion. With longitudinal traction, the fracture was reduced and two 0.045-inch K-wires were driven through the proximal fragment and into the distal fragment in intramedullary fashion. This provided anatomical reduction of the fracture fragments on both the AP and lateral views. The pins were bent and cut, dressed with Xeroform, 4x4, Webril, and a thumb spica splint. The patient tolerated the procedure well and was brought to the recovery room in good condition. [id number]/[facility] #: [id number] MTDD
--- NOTE | 2017-02-10 15:24 | RAD ---
INDICATION: Percutaneous pinning LEFT thumb. COMPARISON: February 02, 2017 TECHNIQUE: 2 minutes 20 seconds fluoroscopy. FINDINGS: Spot images document to percutaneous wires traversing the nonarticular fracture at the proximal diaphysis of the first metacarpal with significantly improved alignment postreduction. IMPRESSION: Procedural fluoroscopy. CPT II Codes: 6045F
== END 2017-02-09 13:15 | disposition home or self-care (01) ==
LOC: OREAST 09:44
PROVIDERS: ATTEND Orthopaedic Surgery
DX: S62.242A Displaced fracture of shaft of first metacarpal bone, left hand, initial encounter for closed fracture (principal); W07.XXXA Fall from chair, initial encounter; Y92.099 Unspecified place in other non-institutional residence as the place of occurrence of the external cause; K21.9 Gastro-esophageal reflux disease without esophagitis; E78.5 Hyperlipidemia, unspecified; F41.8 Other specified anxiety disorders; I10 Essential (primary) hypertension; G25.81 Restless legs syndrome; J45.909 Unspecified asthma, uncomplicated; I50.9 Heart failure, unspecified
CPT/HCPCS: 76000; C1776; J2704; J3010

== ENCOUNTER 2017-07-18 11:54 | Observation (INO) | payer MEDICARE, MEDICAID ==
--- NOTE | 2017-07-18 13:10 | RAD ---
Indication: Chest pain. Single frontal view of the chest performed at 1240 hours was reviewed. Comparison is made with previous exam dated June 09, 2013. No mediastinal shift is noted. Heart is of normal size and configuration. Lung brooks appear clear. IMPRESSION: NO ACTIVE CARDIOPULMONARY DISEASE IS NOTED.
[2017-07-18 13:11] LABS: ABS Basophils 0.1 10^3/ul (0-0.2); ABS Eosinophils 0.1 10^3/ul (0-0.6); ABS Lymphocytes 1.5 10^3/ul (1.0-4.8); ABS Monocytes 0.8 10^3/ul (0-0.8); ABS Neutrophils 4.7 10^3/ul (1.5-7.7); ABS Nucleated RBC 0 10^3/ul; Eosinophil % 1.6 % (0-6); Hematocrit 35 % (35-47); Hemoglobin 11.6 g/dl (12.0-16.0); Mean Corpuscular HGB Conc 33 g/dl (31-36); Mean Corpuscular Hemoglobin 30 pg (27-31); Mean Corpuscular Volume 92 fL (80-97); Mean Platelet Volume 7.4 um3 (7.4-10.4); Nucleated Red Blood Cells % 0; Platelet Count 203 10^3/ul (150-450); Red Blood Count 3.83 10^6/ul (4.0-5.4); Red Cell Distribution Width 15 % (10.5-15); White Blood Count 7.1 10^3/ul (3.5-10.8)
[2017-07-18 13:22] LABS: INR 0.94 (0.77-1.02)
[2017-07-18 13:26] LABS: EGFR Non-African American 51.4 (>60)
[2017-07-18 13:54] LABS: Urine Appearance Clear; Urine Blood Negative (Negative); Urine Color Colorless; Urine Ketones Negative (Negative); Urine Protein Negative (Negative); Urine Specific Gravity 1.004 (1.010-1.030); Urine Urobilinogen Negative (Negative)
[2017-07-18] MEDS ORDERED: BENGAY TOPICAL PRN (14:35)
[2017-07-18] MEDS ORDERED: Acetaminophen TAB* 325 MG PO PRN (14:35)
--- NOTE | 2017-07-18 15:45 | ED ---
Venkat Roy Stephanie, scribed for Jos Coffey MD on 07/18/17 at 1324 . HPI Chest Pain - HPI Summary HPI Summary: The pt is an 86 y/o F BIBA to the ED with c/o CP that began earlier today at 09: 00. The pt states for the past week she has felt intermittent chest pressure. Symptoms include SOB and chest congestion. She denies fever, abd pain, dysuria, chills, nausea and diaphoresis. The pain is described as a pressure, was located at the L anterior side of chest and radiated up to the L side of her neck. She rates her pain as a 7 in severity. The CP lasted 3 minutes. The pt states she has chronic LE erythema and itchiness. The pt uses wheelchair to travel. - History of Current Complaint Chief Complaint: EDChestPainROMI Time Seen by Provider: 07/18/17 12:42 Hx Obtained From: Patient Hx Last Menstrual Period: N/A Onset/Duration: Started Hours Ago, Resolved Timing: Intermittent Initial Severity: Moderate Current Severity: None Pain Intensity: 7 Pain Scale Used: 0-10 Numeric Chest Pain Location: Left Anterior Chest Pain Radiates: Yes Chest Pain Radiates To:: Neck - L side Character: Pressure/Squeezing Aggravating Factor(s): Nothing Alleviating Factor(s): Spontaneous Resolution Associated Signs and Symptoms: Positive: Negative - dysuria, Chest Pain, Shortness of Breath, Other: - chest congestion. Negative: Fever, Chills, Diaphoresis, Nausea, Abdominal Pain - Allergy/Home Medications Allergies/Adverse Reactions: Allergies Allergy/AdvReac Type Severity Reaction Status Date / Time levofloxacin [From Levaquin] Allergy Rash Verified 07/18/17 12:31 Penicillins Allergy Rash Verified 07/18/17 12:31 prochlorperazine Allergy Unknown Verified 07/18/17 12:31 [From Compazine] Reaction Details promethazine [From Phenergan] Allergy Unknown Verified 07/18/17 12:31 Reaction Details Home Medications: Home Medications ALPRAZolam TAB* [Xanax TAB*] 0.25 mg PO BID 07/18/17 [History Confirmed 07/18/17 ] Acetaminophen SUPP* [Tylenol Supp*] 650 mg NM Q8H PRN 07/18/17 [History Confirmed 07/18/17] Acetaminophen TAB* [Tylenol TAB*] 650 mg PO Q8H PRN 07/18/17 [History Confirmed 07/18/17] Atenolol TAB* [Tenormin TAB* 50 MG] 50 mg PO DAILY 07/18/17 [History Confirmed 07/18/17] Atorvastatin* [Lipitor*] 20 mg PO BEDTIME 07/18/17 [History Confirmed 07/18/17] Bengay Patch 1 patch TOPICAL DAILY PRN 07/18/17 [History Confirmed 07/18/17] Cholecalciferol TAB* [Vitamin D TAB*] 50,000 unit PO MONTHLY 07/18/17 [History Confirmed 07/18/17] Furosemide TAB* [Lasix TAB*] 40 mg PO DAILY 07/18/17 [History Confirmed 07/18/17 ] Hydrocodone/Acetamin 10/325(NF [[place] 10/325 (NF)] 1 tab PO Q6H PRN 07/18/17 [ History Confirmed 07/18/17] Magnesium Hydroxide LIQ* [Milk of Magnesia LIQ*] 325 mg PO DAILY PRN 07/18/17 [ History Confirmed 07/18/17] Minerin Cream* [Eucerin Cream*] 1 applic TOPICAL BID PRN 07/18/17 [History Confirmed 07/18/17] Morphine Sulfate [Morphine Sulfate ER] 60 mg PO BID 07/18/17 [History Confirmed 07/18/17] Ranitidine TAB (NF) [Zantac TAB (NF)] 150 mg PO BEDTIME 07/18/17 [History Confirmed 07/18/17] Ropinirole TAB* [Requip TAB*] 0.25 mg PO DAILY 07/18/17 [History Confirmed 07/18] Ropinirole TAB* [Requip TAB*] 0.25 mg PO DAILY 07/18/17 [History Confirmed 07/18] Sertraline* [Zoloft*] 50 mg PO DAILY 07/18/17 [History Confirmed 07/18/17] Tolnaftate [Tgt Antifungal [place] Powd] 1 % TOPICAL BID PRN 07/18/17 [History Confirmed 07/18/17] PMH/Surg Hx/FS Hx/Imm Hx Endocrine/Hematology History: Reports: Hx Anemia - IRON DEFICIENCY Denies: Hx Anticoagulant Therapy Cardiovascular History: Reports: Hx Cardiomegaly, Hx Congestive Heart Failure - on furosemide, Hx Coronary Artery Disease - STENT IN PLACE-APPROXIMATELY 13 YEARS AGO, Hx Hypertension - ON MEDICATION Respiratory History: Reports: Hx Pneumonia - current DX Comment Only: Hx Asthma - PNEUMONIA GI History: Reports: Hx Gastroesophageal Reflux Disease - ON MEDICATION, Other GI Disorders - HISTORY OF GASTRITIS Musculoskeletal History: Reports: Hx Arthritis - BACK, NECK HANDS, Hx Back Problems - altman surgery x4, Other Musculoskeletal History - BILATERAL FOOT DROP PER DR. ROSE H&P Sensory History: Reports: Hx Contacts or Glasses - GLASSES Denies: Hx Hearing Aid Opthamlomology History: Reports: Hx Contacts or Glasses - GLASSES Neurological History: Reports: Other Neuro Impairments/Disorders - restless leg syndrome Psychiatric History: Reports: Hx Anxiety, Hx Depression - ON MEDICATION FOR - Surgical History Surgery Procedure, Year, and Place: APPENDECTOMY-TC. 3- [id number]. NECK SURGERY- DISCECTOMY. FUSION-WITH REVISIONS [facility]. FOOT SURGERY. CARDIAC STENT. SURGERY FOR DIVERTICULITIS Hx Anesthesia Reactions: Yes - ONE OF C-SECTIONS- 1954- LUNGS FILLED WITH FLUID - Immunization History Date of Tetanus Vaccine: unk Date of Influenza Vaccine: 12/2016 Infectious Disease History: No Infectious Disease History: Reports: Hx Hepatitis - A CHILD Denies: Traveled Outside the [place] in Last 30 Days - Family History Known Family History: Positive: Hypertension - Social History Occupation: Retired Lives: Alone Alcohol Use: None Hx Substance Use: No Substance Use Type: Reports: None Hx Tobacco Use: No Smoking Status (MU): Never Smoked Tobacco Type: Cigarettes Amount Used/How Often: 1/2 pk/day Review of Systems Negative: Fever, Chills, Skin Diaphoresis Positive: Chest Pain, Other - chest congestion Positive: Shortness Of Breath Negative: Abdominal Pain, Nausea Negative: dysuria Positive: Other - chronic LE erythema and itchiness Negative: Slurred Speech All Other Systems Reviewed And Are Negative: Yes Physical Exam - Summary Physical Exam Summary: General: well-appearing, no pain distress Skin: warm, color reflects adequate perfusion, dry Head: normal Eyes: EOMI, JAMESON ENT: normal Neck: supple, nontender Respiratory: CTA, breath sounds present Cardiovascular: RRR Abdomen: soft, nontender Bowel: present Musculoskeletal: strength/ROM intact, bilateral pedal edema, bilateral LE erythema greater on L leg than R leg Neurological: sensory/motor intact, A&O x3 Psychological: affect/mood appropriate Triage Information Reviewed: Yes Vital Signs On Initial Exam: Initial Vitals Temp Pulse Resp BP Pulse Ox 97.8 F 55 13 121/64 96 07/18/17 12:18 07/18/17 12:18 07/18/17 12:18 07/18/17 12:18 07/18/17 12:18 Vital Signs Reviewed: Yes Diagnostics - Vital Signs Vital Signs Temp Pulse Resp BP Pulse Ox 07/18/17 13:00 18 07/18/17 12:55 21 122/62 07/18/17 12:26 60 16 121/64 98 07/18/17 12:25 60 95 07/18/17 12:18 97.8 F 55 13 121/64 96 - Laboratory Lab Results: Lab Results 07/18/17 Range/Units 13:03 WBC 7.1 (3.5-10.8) 10^3/ul RBC 3.83 L (4.0-5.4) 10^6/ul Hgb 11.6 L (12.0-16.0) g/dl Hct 35 (35-47) % MCV 92 (80-97) fL MCH 30 (27-31) pg MCHC 33 (31-36) g/dl RDW 15 (10.5-15) % Plt Count 203 (150-450) 10^3/ul MPV 7.4 (7.4-10.4) um3 Neut % (Auto) 65.3 (38-83) % Lymph % (Auto) 21.0 L (25-47) % [place] % (Auto) 10.9 H (0-7) % Eos % (Auto) 1.6 (0-6) % Baso % (Auto) 1.2 (0-2) % Absolute Neuts (auto) 4.7 (1.5-7.7) 10^3/ul Absolute Lymphs (auto) 1.5 (1.0-4.8) 10^3/ul Absolute Monos (auto) 0.8 (0-0.8) 10^3/ul Absolute Eos (auto) 0.1 (0-0.6) 10^3/ul Absolute Basos (auto) 0.1 (0-0.2) 10^3/ul Absolute Nucleated RBC 0 10^3/ul Nucleated RBC % 0 Result Diagrams: 07/18/17 13:03 07/18/17 13:03 Lab Statement: Any lab studies that have been ordered have been reviewed, and results considered in the medical decision making process. - Radiology CXR Xray Interpretation: No Acute Changes Radiology Interpretation Completed By: Radiologist - NO ACTIVE CARDIOPULMONARY DISEASE IS NOTED. ED physician reviewed this report. - EKG 12:37 Cardiac Rate: Bradycardia EKG Rhythm: Sinus Bradycardia - 56 BPM Ectopy: None EKG Interpretation: flipped T wave in lead III, no ST changes Re-Evaluation - Re-Evaluation First Eval Re-Evaluation Time: 15:03 Change: Unchanged - ED physician discussed plan of admission with the pt and she agrees with admission. Chest Pain Course/Dx - Course Course Of Treatment: ADMIT HOSPITALIST - Diagnoses Provider Diagnoses: Chest pain - Provider Notifications Discussed Care Of Patient With: Sinai Thorne Time Discussed With Above Provider: 14:15 Instructed by Provider To: Admit As Inpatient Discharge - Sign-Out/Discharge Documenting (check all that apply): Discharge/Admit/Transfer - Discharge Plan Condition: Stable Disposition: ADMITTED TO [facility] - Billing Disposition and Condition Condition: STABLE [place] [place] The documentation as recorded by the Venkat mojica Stephanie accurately reflects the service I personally performed and the decisions made by me, Jos Coffey MD.
--- NOTE | 2017-07-18 19:56 | HP ---
CC: [facility] * HISTORY AND PHYSICAL: DATE OF ADMISSION: 07/18/17 PRIMARY CARE PROVIDER: Maura Allen DO, at [facility]. ATTENDING PHYSICIAN: Sinai Thorne DO * (dictated by Brenda Hayden NP). CHIEF COMPLAINT: Chest pain radiating to left side of neck. HISTORY OF PRESENT ILLNESS: Ms. Arizmendi is an 86-year-old female with past medical history significant for coronary artery disease, status post cardiac catheterization and 1 stent placed several years ago; anxiety; hypertension; hyperlipidemia; heart failure; depression; restless legs syndrome; GERD; iron- deficiency anemia; chronic pain, who had been in her usual state of health when this morning she reports developing left-sided chest pain that she rated as a 6/ 10 with associated mild shortness of breath that radiated up to left side of her neck. The patient states she is on 4 L of oxygen at baseline. She denies any recent fevers, chills, cough, nausea, vomiting, diarrhea, abdominal pain, dysuria. Due to her chest pain, she was sent from [facility] over to the emergency room for further evaluation. While in the emergency room, the patient had labs remarkable for an elevated CO2 at 37. This appears to be her baseline. She had a troponin of 0.00, a BNP of 236. She was chest pain free in the emergency room. She had an EKG without significant findings and negative urinalysis. A chest x-ray showing no active cardiopulmonary disease. The patient does not think she would want a cardiac catheterization. She would like minimal interventions. Due to the patient's history and her complaint of chest pain earlier today, the hospitalists were asked to evaluate the patient for admission. PAST MEDICAL HISTORY: 1. Anxiety. 2. Depression. 3. Hypertension. 4. Hyperlipidemia. 5. Heart failure. 6. Restless legs syndrome. 7. Coronary artery disease. 8. GERD. 9. Iron-deficiency anemia. 10. Chronic pain. 11. Right footdrop. PAST SURGICAL HISTORY: 1. Status post cardiac catheterization with 1 stent placement. 2. Status post sigmoidectomy. 3. Status post hernia repair. 4. Status post tonsillectomy and adenoidectomy. 5. Status post multiple back surgeries. 6. Status post 3 C-sections. 7. Status post carpal tunnel release. 8. Status post hysterectomy. HOME MEDICATIONS: Include: 1. Alprazolam 0.25 mg oral twice daily. 2. Morphine sulfate ER 60 mg oral twice daily. 3. Requip 0.25 mg oral daily. 4. Furosemide 40 mg oral daily. 5. Eucerin cream apply topical twice daily to lower extremities. 6. Bengay patch apply 1 patch to lower back daily, remove at night. 7. Atenolol 50 mg oral daily. 8. Atorvastatin 20 mg oral daily. 9. Zoloft 50 mg oral daily. 10. Milk of magnesia 30 ml oral daily as needed for constipation. 11. [place] 10/325, 1 tablet oral every 6 hours as needed for pain. 12. Ranitidine 150 mg oral daily at bedtime. 13. Acetaminophen 650 mg oral every 8 hours as needed for fever or pain. 14. Vitamin D 50,000 units oral monthly on the . 15. Acetaminophen 650 mg p.r. every 8 hours as needed for fever or pain. 16. Antifungal powder apply topical twice daily and as needed for 14 days. ALLERGIES: LEVAQUIN causes rash, PENICILLIN causes rash, COMPAZINE and PHENERGAN. FAMILY HISTORY: The patient's father and brother have a history of coronary artery disease. She denies any family history of diabetes or cancer. SOCIAL HISTORY: The patient is a former smoker, she quit over 40 years ago. Prior to that, she had approximately half a pack a day smoking history for a few years. She occasionally has alcohol. She denies recreational drug use. She currently resides at [facility]. Her daughter, Kaia Michelle , will be her surrogate decision maker in the event she is unable to make decisions for herself. REVIEW OF SYSTEMS: I performed an 11-point review of systems. All the pertinent positives and negatives are mentioned in the history of present illness. The remaining review of systems are negative. PHYSICAL EXAMINATION GENERAL APPEARANCE: The patient is alert, pleasant and appears to be in no acute distress. VITAL SIGNS: Temperature 97.8, heart rate 57, respiratory rate 15, O2 sat 92% on 4 L via nasal cannula, blood pressure 122/62. HEENT: Normocephalic, atraumatic. Pupils are equal and reactive to light. Extraocular movements are intact. RESPIRATORY: There is no accessory muscle use. The lungs are clear to auscultation bilaterally. CARDIOVASCULAR: Regular rate and rhythm. S1 and S2 present. There are no murmurs, rubs, or gallops heard. ABDOMEN: Soft, nontender, and nondistended. There are bowel sounds present x4. EXTREMITIES: There is 1+ bilateral lower extremity edema. DP and PT pulses are 2+ and symmetric. MUSCULOSKELETAL: There is no clubbing or cyanosis noted. The patient exhibits good strength in all extremities. NEUROLOGICAL: The patient is alert and oriented to person, place and time. SKIN: The patient has bilateral lower extremity erythema that is slightly worse on the left than the right. DIAGNOSTIC STUDIES/LABORATORY DATA: Sodium 137, potassium 4.9, chloride 103, CO2 of 37, BUN 14, creatinine 1.02, glucose 107. White blood cell count 7.1, hemoglobin 11.6, hematocrit 35, platelet count 206,000. BNP 236. Troponin 0.00. Urinalysis negative. EKG shows a sinus bradycardia, rate of 56. There is T-wave inversion in lead III. This EKG is similar to previous from 09/22/16. Chest x-ray from today. Radiologist's impression: No active cardiopulmonary disease. IMPRESSION: Ms. Arizmendi is an 86-year-old female with past medical history significant for coronary artery disease, hypertension, hyperlipidemia, heart failure, depression, restless legs syndrome, gastroesophageal reflux disease, iron- deficiency anemia and chronic pain, who presents to the emergency room with complaints of chest pain. She will be admitted as an observation to rule out acute coronary syndrome. ASSESSMENT/PLAN: 1. Chest pain. The patient's chest pain has now resolved. The plan will be to trend her troponins, check an echocardiogram in the morning. The patient is declining a stress test, but is agreeable to an echo. We will also check an EKG in the morning. We will check fasting lipids in the morning. She has a WANDA score of 2. 2. History of coronary artery disease. The patient has a history of 1 cardiac stent placed at [facility] several years prior. She will be continued on her home atenolol, I will place hold parameters as she is bradycardic and her atorvastatin. She is not currently on any aspirin. 3. Heart failure. No signs of acute exacerbation at this time. The patient will be continued on her home Lasix. She has not had an echocardiogram in approximately 10 years. We will check an echo to eval her heart function. 4. Hypertension. She is currently normotensive. I am going to continue her on her atenolol with hold parameters. 5. Gastroesophageal reflux disease. She will be continued on her home PPI. 6. Chronic pain. She will be continued on her home morphine, Bengay patch and acetaminophen as needed. 7. Anxiety/depression. The patient will be continued on her home Zoloft and alprazolam. 8. Restless legs syndrome. She will be continued on her home Requip. 9. Chronic hypercarbic/hypoxic respiratory failure. She is at her baseline oxygen requirements and baseline carbon dioxide level. 10. Fluids, electrolytes and nutrition. She will be on a heart-healthy diet with mechanical soft foods. 11. Code status. Do not resuscitate. She has a MOLST on file. 12. DVT prophylaxis. She is at highest risk. She will be on subcu heparin. She will not have SCDs in the setting of heart failure. 13. Disposition. Observation. TIME SPENT: Time for this admission was approximately 60 minutes, greater than half of that was spent with the patient and family discussing medications, past medical history, the events leading up to her arrival today, and performing a physical examination. The case has been reviewed with the attending, Dr. Thorne, who agrees with the plan of care. Reviewed by GEMA HOPE 07/24/15 1253 [id number]/[facility] #: [id number] EDUAR
[2017-07-18] MEDS: Morphine TAB Extended Release (*) 30 MG TAB.ER PO SCH (20:15)
[2017-07-18] MEDS: ALPRAZolam TAB* 0.25 MG PO SCH (20:16)
[2017-07-18] MEDS ORDERED: Famotidine TAB* 20 MG PO SCH (21:00)
[2017-07-18] MEDS ORDERED: Atorvastatin* 20 MG TAB PO SCH (21:00)
[2017-07-18] MEDS: Heparin VIAL(*) 5000 UNITS/ML VIAL (FIVE THOUSAND) SUBCUT SCH (22:23)
[2017-07-19] MEDS ORDERED: diPHENhydraMINE PO* 25 MG PO ONE (04:27)
[2017-07-19] MEDS: Heparin VIAL(*) 5000 UNITS/ML VIAL (FIVE THOUSAND) SUBCUT SCH (05:44)
[2017-07-19] MEDS: Morphine TAB Extended Release (*) 30 MG TAB.ER PO SCH (08:35)
[2017-07-19] MEDS: ALPRAZolam TAB* 0.25 MG PO SCH (08:36)
[2017-07-19] MEDS ORDERED: Ropinirole TAB* 0.5 MG TAB PO SCH (09:00)
[2017-07-19] MEDS ORDERED: Atenolol TAB* 50 MG PO SCH ×2 (09:00)
[2017-07-19] MEDS ORDERED: Furosemide TAB* 40 MG PO SCH (09:00)
[2017-07-19] MEDS ORDERED: Sertraline* 50 MG TAB PO SCH (09:00)
--- NOTE | 2017-07-19 09:54 | ECHO ---
Patient: KRISTIE SCHWARTZ [facility] Rec#: [id number] : 1930 Date: 07/19/2017 Age: 86y Height: 157.48 cm / 62.0 in Weight: 79.38 kg / 175.0 lbs Sex: F BSA: 1.81 Room#: 436 Admit Date#: 07/18/2017 Type: Inpatient Referring: Brenda Veliz NP Reading: Gregory Tapia MD Sql Report Developer: Dayana Trujillo RDCS,RDMS CC: Jesus Dasilva MD Transthoracic Echocardiogram Indication: CP BP: 96/52 HR: 60 Rhythm: NSR Findings History: CAD, PCI, HTN, HLD, CHF Technical Comments: The study quality is good. Left Ventricle: The left ventricular chamber size is normal. Mild concentric left ventricular hypertrophy is observed. Basal interventricular septum shows moderate thickening. Global left ventricular wall motion and contractility are within normal limits. There is normal left ventricular systolic function. The estimated ejection fraction is 55-60%. There is no consistent Doppler evidence of clinically significant diastolic dysfunction. Left Atrium: The left atrial chamber size is normal. Right Ventricle: The right ventricular chamber size and systolic function are within normal limits. Right Atrium: The right atrial cavity size is normal. Aortic Valve: The aortic valve leaflets are mildly thickened. There is aortic annular calcification. There is a trace of aortic regurgitation. There is borderline aortic stenosis present. The mean gradient of the aortic valve is 6.4 mmHg. The aortic valve area, by peak velocities, is calculated at 2 cm2. Mitral Valve: There is mitral annular calcification. The mitral valve leaflets are mildly thickened. There is mild mitral regurgitation. There is no evidence of mitral stenosis. Tricuspid Valve: The tricuspid valve leaflets are normal. There is moderate tricuspid regurgitation. There is evidence of mild pulmonary hypertension. Pulmonic Valve: The pulmonic valve appears normal. There is a trace pulmonic regurgitation. Pericardium: There is no significant pericardial effusion. Aorta: The aortic root appears normal. There is no dilatation of the aortic arch. There is plaque visualized in the ascending aorta. Pulmonary Artery: The main pulmonary artery appears normal. Venous: The inferior vena cava appears normal in size. There is a greater than 50% respiratory change in the inferior vena cava dimension. Conclusions Global left ventricular wall motion and contractility are within normal limits. There is normal left ventricular systolic function. The estimated ejection fraction is 55-60%. The right ventricular chamber size and systolic function are within normal limits. There is borderline aortic stenosis present. The mean gradient of the aortic valve is 6.4 mmHg. There is mild mitral regurgitation. There is moderate tricuspid regurgitation. There is evidence of mild pulmonary hypertension. There is no significant pericardial effusion. Compared to study of 06-07-08 , there is little change Measurements Name Value Normal Range RVIDd (AP) 2D 2.4 cm (0.9 - 2.6) RVDdMajor (2D) 2.4 cm (2.2 - 4.4) RAd ISD 4CH 4.6 cm (3.4 - 4.9) RA (A4C)W 3.5 cm (2.9 - 4.6) IVSd (2D) 1.6 cm (0.6 - 1) LVPWd (2D) 1.1 cm (0.6 - 1) LVIDd (2D) 2.9 cm (3.6 - 5.4) LVIDs (2D) 2 cm - LV FS (2D) 33 % (25 - 45) Aortic Annulus 2 cm (1.4 - 2.6) Ao root diameter (2D) 2.7 cm (2.1 - 3.5) Ascending Ao 2.9 cm (2.1 - 3.4) Aortic arch 2.4 cm (1.8 - 3.4) LA dimension (AP) 2D 3.5 cm (2.3 - 3.8) LAd ISD 4CH 5.3 cm (2.9 - 5.3) LA ISD 4CH W 4.6 cm (2.5 - 4.5) Name Value Normal Range LA ESV SP 4CH (A/L) 55.82 ml - LA ESV SP 2CH (A/L) 42.74 ml - LA ESV BP (A/L) 49.4 ml - LA ESV BP (A/L) index 27 ml/m2 - LA ESV SP 4CH (MOD) 52.67 ml - LA ESV SP 2CH (MOD) 40.14 ml - Name Value Normal Range MV E-wave Vmax 0.8 m/sec - MV deceleration time 196 msec - MV A-wave Vmax 0.9 m/sec - MV E:A ratio 0.9 ratio - P. vein S-wave Vmax 0.5 m/sec - P. vein D-wave Vmax 0.5 m/sec - P. vein S:D Vmax ratio 1.1 ratio - P. vein A-wave duration 118 msec - LV septal e' Vmax 0.06 m/sec - LV lateral e' Vmax 0.07 m/sec - LV E:e' septal ratio 13 ratio - LV E:e' lateral ratio 11.4 ratio - Name Value Normal Range AV Vmax 1.9 m/sec - AV VTI 41 cm - AV peak gradient 14 mmHg - AV mean gradient 6.4 mmHg - LVOT diameter 2 cm - LVOT Vmax 1.2 m/sec - LVOT VTI 30.3 cm - LVOT peak gradient 6 mmHg - LVOT mean gradient 3.1 mmHg - DOI (VTI) 0.7 ratio - TRISHA (continuity Vmax) 2 cm2 - TRISHA (continuity VTI) 2.3 cm2 - BAYRON Vmax 0.5 m/sec - Name Value Normal Range TR Vmax 2.9 m/sec - TR peak gradient 34 mmHg - RAP 3 mmHg - RVSP 37 mmHg - IVC diameter 2.1 cm - Name Value Normal Range PV Vmax 0.6 m/sec - PV peak gradient 1.4 mmHg -
--- NOTE | 2017-07-19 10:01 | PN ---
Progress Note - Progress Note Date of Service: 07/19/17 Note: Time spent on discharge 45 minutes.
--- NOTE | 2017-07-19 12:22 | TRS ---
CC: [facility] * TRANSFER SUMMARY: DATE OF ADMISSION: 07/18/17 DATE OF TRANSFER: 07/19/17 HOSPITAL COURSE: This 86-year-old woman was admitted with chest pain. She has a history of a stent placed, I believe, 14 years ago according to the daughter. She has been a resident of [facility] about 6 years. Her memory is somewhat hazy about recent events as well as past events. The patient had no further chest pain in the hospital. She had 3 troponin levels, all of which were within normal limits. There were no new problems. I spoke to her daughter on the phone who said that the patient has a lot of anxiety. The patient herself said she did not want any cardiac interventions, including stents or cardiac catheterizations. The daughter thought this was quite a reasonable approach considering her age and her comorbidities. I am not changing any of her medications. She seems to be stable and it is quite a while. FINAL DIAGNOSES: 1. Chest pain. 2. Anxiety. 3. Dementia. 4. History of coronary artery disease. 5. History of congestive heart failure. 6. Hypertension. 7. Chronic pain. TRANSFER MEDICATIONS: 1. Acetaminophen 650 mg suppository every 8 hours p.r.n. 2. Cholecalciferol 50,000 units monthly. 3. Acetaminophen 650 mg p.o. every 8 hours p.r.n. 4. Ranitidine 150 mg h.s. 5. Hydrocodone/acetaminophen 10/325 one every 6 hours p.r.n. 6. Ropinirole 0.25 mg daily. 7. Magnesium hydroxide 325 mg daily p.r.n. 8. Sertraline 50 mg daily. 9. Atorvastatin 20 mg h.s. 10. Atenolol 50 mg daily. 11. Bengay patch p.r.n. daily. 12. Eucerin cream b.i.d. p.r.n. 13. Furosemide 40 mg daily. 14. Morphine sulfate ER 60 mg b.i.d. 15. Alprazolam 0.25 mg b.i.d. 16. Tolnaftate 1% b.i.d. p.r.n. The patient is transferred to return to [facility]. [id number]/[facility] #: [id number] MTDD
[2017-07-19 12:25] VITALS: BP 96/56
== END 2017-07-19 12:52 ==
LOC: ED 11:54 → MEDTELE 14:27
PROVIDERS: ADMIT Internal Medicine; ATTEND Internal Medicine
DX: R07.9 Chest pain, unspecified (principal); F41.9 Anxiety disorder, unspecified; F32.9 Major depressive disorder, single episode, unspecified; I10 Essential (primary) hypertension; E78.5 Hyperlipidemia, unspecified; I50.9 Heart failure, unspecified; G25.81 Restless legs syndrome; I25.10 Atherosclerotic heart disease of native coronary artery without angina pectoris; K21.9 Gastro-esophageal reflux disease without esophagitis; D50.9 Iron deficiency anemia, unspecified; G89.29 Other chronic pain; M21.371 Foot drop, right foot; Z95.5 Presence of coronary angioplasty implant and graft; Z90.49 Acquired absence of other specified parts of digestive tract; Z90.710 Acquired absence of both cervix and uterus
CPT/HCPCS: 36415; 71045; 80053; 80061; 81003; 82550; 82553; 83605; 83690; 83874; 83880; 84484; 85025; 85610; 85730; 86140; 87641; 93005; 93306; 99284; A9270-GY; G0378; J1644